=== PATIENT | female | born 1985 | race Caucasian/White ===

== ENCOUNTER → 2020-05-24 14:30 | Outpatient (BNVA) | payer OTHER, SELFPAY | PROVIDERS: PCP Internal Medicine; Visit Provider Physician Assistant Medical | DX: S40.012A Contusion of left shoulder, initial encounter (principal); W22.8XXA Striking against or struck by other objects, initial encounter | CPT/HCPCS: 99202 ==

== ENCOUNTER → 2020-07-11 13:03 | Outpatient (REF) | payer OTHER, SELFPAY | LOC: HO.SL 13:03 | PROVIDERS: PCP Internal Medicine; Visit Provider Nurse Practitioner Family | DX: G47.30 Sleep apnea, unspecified (principal); R06.02 Shortness of breath | CPT/HCPCS: 95806 ==

== ENCOUNTER → 2020-09-24 14:16 | Outpatient (BNVA) | payer OTHER, SELFPAY | PROVIDERS: PCP Internal Medicine; Visit Provider Physician Assistant | DX: S09.90XA Unspecified injury of head, initial encounter (principal); V89.0XXA Person injured in unspecified motor-vehicle accident, nontraffic, initial encounter; R51.9 Headache, unspecified | CPT/HCPCS: 99203 ==

== ENCOUNTER 2020-10-29 16:28 | Outpatient (REF) | payer OTHER, SELFPAY ==
[2020-10-29 18:04] LABS: Anion Gap 14 (12-20); Blood Urea Nitrogen 8 mg/dL (9-16); Calcium 8.6 mg/dL (8.4-10.2); Carbon Dioxide 26 mmol/L (22-29); Chloride 101 mmol/L (96-108); Estimated Glomerular Filt Rate > 60; Magnesium 1.9 mg/dL (1.6-2.6); Phosphorus 3.1 mg/dL (2.7-4.5); Potassium 3.9 mmol/L (3.3-5.1); Sodium 137 mmol/L (135-145)
[2020-10-29 18:08] LABS: Uric Acid 4.8 mg/dL (2.4-5.7)
[2020-10-30 11:52] LABS: Calcium (PTHI) 9.2 mg/dL (8.6-10.2); PTHI 83 pg/mL (14-64)
== END 2020-10-29 16:29 | disposition home or self-care (01) ==
LOC: HO.LAB 16:28
PROVIDERS: PCP Internal Medicine; Visit Provider Urology
DX: N20.0 Calculus of kidney (principal)
CPT/HCPCS: 36415; 80051; 82310; 82565; 83735; 83970; 84100; 84520; 84550

== ENCOUNTER → 2020-10-30 11:29 | Outpatient (BNVA) | payer OTHER, SELFPAY | PROVIDERS: PCP Internal Medicine; Visit Provider Psychiatry & Neurology Neurology ==